=== PATIENT | male | born 1995 | race Hispanic/Latino ===

== ENCOUNTER 2017-02-21 06:32 | Emergency (ER) | payer SELFPAY ==
[2017-02-21] MEDS ORDERED: Ondansetron HCl/PF 4 MG/2 ML Vial ONE (06:52)
[2017-02-21 06:59] LABS: #Basophils 0.1 thou/uL (0.0-0.2); #Eosinphils 0.1 thou/uL (0.0-0.7); #Monocytes 0.5 thou/uL (0.11-0.59); #Neutrophils 5.1 thou/uL (1.40-6.50); %Basophils 1.5 % (0.0-1.0); %Eosinophils 1.3 % (0.0-10.0); %Lymphocytes 26.2 % (28.0-48.0); %Monocytes 5.8 % (0.0-4.0); %Neutrophils 65.2 % (31.0-61.0); Hemoglobin 17.6 g/dL (14.0-18.0); Mean Corpuscular HGB CONC 32.6 g/dL (32.0-36.0); Mean Corpuscular Hemoglobin 30.2 pg (25.0-35.0); Mean Corpuscular Volume 92.7 fl (77.0-87.0); Mean Platelet Volume 7.2 fL (7.4-10.4); Platelet Count 329 thou/uL (130-400); RBC Distribution Width 11.2 % (11.5-14.5); Red Blood Cell (RBC) Count 5.82 mill/uL (4.00-5.20); White Blood Cell (WBC) Count 7.8 thou/uL (4.8-10.8)
[2017-02-21 07:04] LABS: Base Excess -7.7 mEq/L (0 (+/- 2.5)); pH (venous) 7.33 (7.35-7.45)
[2017-02-21 07:05] LABS: Hemoglobin (Hb) 17.3 g/dL (13.2-17.3)
[2017-02-21 07:12] LABS: ALT (SGPT) 39 U/L (8-55); AST (SGOT) 24 U/L (5-34); Albumin 5.2 g/dL (3.5-5.0); Alkaline Phosphatase 109 U/L (Less than 750); Anion Gap 33 mmol/L (10-20); BUN (Urea Nitrogen) 23 mg/dL (8.9-20.6); Bilirubin, Total 0.7 mg/dL (0.2-1.2); Calc. Creatinine Clearance 0 mL/min (70-130); Calcium 10.5 mg/dL (7.8-10.44); Carbon Dioxide 14 mmol/L (22-29); Chloride 95 mmol/L (98-107); Estimated GFR-MDRD 54; Globulin 3.6 g/dL (2.4-3.5); Potassium 4.1 mmol/L (3.5-5.1); Protein, Total 8.8 g/dL (6.0-8.3); Sodium 138 mmol/L (136-145)
[2017-02-21 07:22] LABS: Glucose 787 mg/dL (70-105)
[2017-02-21] MEDS ORDERED: Insulin Regular 300 UNITS/3 ML VIAL ONE (07:39)
[2017-02-21] MEDS ORDERED: Sodium Chloride 0.9% 100 ML ONE ×2 (07:42)
[2017-02-21 08:44] LABS: Bilirubin Negative (Negative); Blood, Urine Negative (Negative); Clarity Clear (Clear); Glucose, Urine (Dipstick) 500 mg/dL (Negative); Leukocyte Negative (Negative); Nitrite Negative (Negative); Protein, Urine (Dipstick) Negative (Neg-Trace); Urobilinogen 0.2 mg/dL (0.2-1.0); pH, Urine 5.5 (5.0-9.0)
[2017-02-21] MEDS ORDERED: NS 0.9% w/ 20 MEQ KCL 1,000 ML ONE (10:07)
== END 2017-02-21 10:13 | disposition short-term general hospital (02) ==
LOC: NAV ERS 06:32
DX: E10.10 Type 1 diabetes mellitus with ketoacidosis without coma (principal); F17.210 Nicotine dependence, cigarettes, uncomplicated
CPT/HCPCS: 36416; 80053; 81003; 82010; 82805; 85025; 96361; 96374; 96375; J1815; J2405; J7050